=== PATIENT | female | born 1985 | race Caucasian/White ===

== ENCOUNTER 2017-06-22 09:57 | Emergency (ER) | payer OTHER ==
[~2017-06-22] VITALS: Ht 177.8 cm; Wt 74.8 kg
[~2017-06-22 09:57] MED LIST: BENADRYL25 MG; PEPCID20 MG; VITAFOL-OB+DHA1 EACH
[2017-06-22] MEDS ORDERED: XANAX0.5 MG PO (11:32)
[2017-06-22] MEDS ORDERED: VENTOLIN HFA18 GM INH (11:58)
--- NOTE | 2017-06-22 14:25 | EKG ---
[facility] [address] [place], [place] [address] Signed Normal sinus rhythm with sinus arrhythmia Normal ECG No previous ECGs available Confirmed by KIRIT PÉREZ MD ([id number] on 06/22/2017 2:25:20 PM Electronically Signed By: KIRIT PÉREZ MD 06/22/17 1425 PATIENT NAME: DREW DAILEY Electrocardiogram DATE OF : 81 PHYSICIAN: KIRIT PÉREZ MD REPORT #: [id number] REPORT IS CONFIDENTIAL AND NOT TO BE RELEASED WITHOUT AUTHORIZATION
== END 2017-06-22 12:02 | disposition home or self-care (01) ==
LOC: ED 09:57
DX: F41.9 Anxiety disorder, unspecified (principal); M99.02 Segmental and somatic dysfunction of thoracic region
CPT/HCPCS: 71020; 80053; 81001; 84703; 85025; 93005; 93010; 99283

== ENCOUNTER 2019-11-14 13:04 | Emergency (ER) | payer OTHER ==
[~2019-11-14] VITALS: Ht 177.8 cm; Wt 74.8 kg
[~2019-11-14 13:04] MED LIST changes: +FLOVENT DISKUS50 MCG INH; +ONDANSETRON ODT8 MG PO; +PROMETHAZINE HC25 M1 PO; +VENTOLIN HFA18 GM INH; +XANAX0.5 MG PO
== END 2019-11-14 14:00 | disposition home or self-care (01) ==
LOC: ED 13:04
DX: Z20.828 Contact with and (suspected) exposure to other viral communicable diseases (principal)